=== PATIENT | male | born 1965 | race African-American/Black ===

== ENCOUNTER 2020-02-06 10:30 | Emergency (ER) | payer OTHER ==
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
--- NOTE | 2020-02-06 11:37 | RAD REPORT ---
EXAM DESCRIPTION: RAD - Knee Left 2 View - 02/06/2020 11:06 am CLINICAL HISTORY: PAIN COMPARISON: No comparisons FINDINGS: No fracture, dislocation or periosteal reaction.No joint effusion seen. No joint space tomy rowing. No soft tissue abnormality. IMPRESSION: Negative left knee. Clinical concerns for internal derangement or occult bony injury could be further assessed with MR im aging.
--- NOTE | 2020-02-06 11:37 | RAD REPORT ---
EXAM DESCRIPTION: RAD - Knee Right 2 View - 02/06/2020 11:06 am CLINICAL HISTORY: PAIN COMPARISON: No comparisons FINDINGS: No fracture, dislocation or periosteal reaction.No joint effusion seen. No joint space tomy rowing. No foreign body in the soft tissues. There is mild contusion suspected in the fatty tissues s uperior to the joint. IMPRESSION: No acute bone or joint finding. Clinical concerns for internal derangement or occult bony injury could be further assessed with MR imaging.
--- NOTE | 2020-02-06 11:39 | RAD REPORT ---
EXAM DESCRIPTION: Shoulder Right 2 View - 02/06/2020 11:06 am CLINICAL HISTORY: PAIN COMPARISON: No comparisons TECHNIQUE: Internal and external rotation views of the right shoulder were obtained. FINDINGS: There is no fracture or dislocation. Mild AC joint degenerative changes are present. No i nferiorly directed spur. There degenerative changes mild in degree along the undersurface of the acro mion. Patient has soft tissue calcifications in the acromial humeral joint space. This is likely from a chronic tendon or capsule injury. No acute bone avulsive process seen. No upper rib abnormality. IMPRESSION: No fracture or acute right shoulder finding identified. AC joint degenerative changes ar e present. Calcifications in the acromial humeral joint space have the appearance of old traumatic tendon or kiersten nt capsule injury.
[2020-02-06] MEDS ORDERED: IBUPROFEN 400 MG TAB ONE (11:47)
[2020-02-06] MEDS ORDERED: IBUPROFEN 200 MG TAB PO ONE (11:47)
[2020-02-06 11:53] LABS: Urine Blood TRACE (NEG); Urine Glucose NEGATIVE (NEG); Urine Protein NEGATIVE (NEG)
[2020-02-06] MEDS ORDERED: LIDOCAINE 1% MPF 5 ML VIAL ONE (13:25)
[2020-02-06] MEDS ORDERED: CEFAZOLIN SODIUM 1 GM/VIAL ONE (13:25)
[2020-02-06] MEDS ORDERED: WATER FOR INJ,STERILE 10 ML ONE (13:30)
[2020-02-06 14:45] VITALS: TEMP 99
[2020-02-06 14:47] VITALS: BP 125/57; O2SAT 100
--- NOTE | 2020-02-06 20:05 | ER ---
Nurse's Notes [facility] Name: Nicola Tompkins Age: 55 yrs Sex: Male : 1965 Arrival Date: 02/06/2020 Time: 10:34 Bed 18 Private MD: Diagnosis: Fall due to bumping against object;Contusion of other part of head-chin, hematoma;Pain in left knee;Pain in right knee Presentation: 02/05 10:47 Chief complaint: Patient states: Fell off of ladder yesterday, approximately 15-20 ss feet. Pt c/o pain to bilateral knees, R shoulder and chin. Denies LOC. Respirations even and unlabored. Care prior to arrival: None. Mechanism of Injury: Fall from ladder approximately 15 feet. Trauma event details: Injury occurred in the [facility], Injury occurred: February 05, 2020. 10:47 Acuity: NATHALIA 2 ss 10:47 Method Of Arrival: Ambulatory ss 10:55 Coronavirus screen: Proceed with normal triage. Patient denies a cough. Patient denies ss shortness of breath or difficulty breathing. Patient denies measured and/or subjective temperature greater than 100.4F prior to today's visit. Patient denies travel on a cruise ship or to a country the [facility] currently lists as an affected area. Patient denies contact with known and/or suspected case of COVID-19. Ebola Screen: Patient denies exposure to infectious person. Patient denies travel to an Ebola-affected area in the 21 days before illness onset. Initial Sepsis Screen: Does the patient meet any 2 criteria? No. Patient's initial sepsis screen is negative. Does the patient have a suspected source of infection? No. Patient's initial sepsis screen is negative. Risk Assessment: Do you want to hurt yourself or someone else? Patient reports no desire to harm self or others. Onset of symptoms was February 05, 2020. Trauma Activation: Alert Physician: ED Physician; Name: ; Notified At: ; Arrived At: Physician: General Surgeon; Name: ; Notified At: ; Arrived At: Physician: Radiology; Name: ; Notified At: ; Arrived At: Physician: Respiratory; Name: ; Notified At: ; Arrived At: Physician: Lab; Name: ; Notified At: ; Arrived At: Historical: - Allergies: 10:56 No Known Allergies; ss - Immunization history:: Adult Immunizations up to date. - Social history:: Smoking status: Patient reports the use of cigarette tobacco products, smokes one-half pack cigarettes per day. - Family history:: not pertinent. Screenin:43 Abuse screen: Denies threats or abuse. Denies injuries from another. Tuberculosis ss screening: Never had TB. 13:45 Nutritional screening: No deficits noted. Fall Risk None identified. Primary Survey: 10:43 NO uncontrolled hemorrhage observed. Breathing/Chest: Respiratory pattern: regular, ss Respiratory effort: spontaneous, unlabored, Breath sounds: clear, bilaterally. Chest inspection: symmetrical rise and fall of the chest. Circulation: Pulses: palpable right radial artery, right posterior tibial artery, left radial artery and left posterior tibial artery. Skin color: pink. Disability Alert. Exposure/Environment: All clothing and personal items were removed. Clothing may be used as evidence. Items were removed and preserved. There is no evidence of uncontrolled external bleeding. Obvious injury(ies) are noted at this time: swelling observed to chin. Assessment: 10:43 General: Appears in no apparent distress. comfortable, Behavior is calm, cooperative, ss Denies fever, feeling ill, fatigue, chills. Pain: Complains of pain in bilateral knees, R shoulder and chin Pain currently is 4 out of 10 on a pain scale. Quality of pain is described as aching, tender, Pain began this morning Is continuous. Neuro: Level of Consciousness is awake, alert, obeys commands, Oriented to person, place, time, situation, Oil Expeller are equal bilaterally swelling noted to L chin. Pupils are PERRLA. EENT: Ear canal clear on right ear and left ear Nares are clear Oral mucosa is moist. Throat is clear. Cardiovascular: Capillary refill < 3 seconds is brisk in bilateral fingers Patient's skin is warm and dry. Pulses are palpable in right radial artery, right posterior tibial artery, left radial artery and left posterior tibial artery. Respiratory: Airway is patent Respiratory effort is even, unlabored, Respiratory pattern is regular, symmetrical, Breath sounds are clear bilaterally. GI: Abdomen is non-distended, Bowel sounds present X 4 quads. Patient currently denies diarrhea, nausea, vomiting. : No signs and/or symptoms were reported regarding the genitourinary system. Denies inability to void. Derm: Skin is intact, is healthy with good turgor, Skin is dry, Skin is pink, warm \T\ dry. normal. Musculoskeletal: Circulation, motion, and sensation intact. Range of motion: intact in all extremities, Swelling absent. Vital Signs: 10:43 BP 172 / 72; Pulse 75; Resp 16; Temp 99.0(TE); Pulse Ox 97% on R/A; Weight 81.65 kg; Height 5 ft. 8 in. (172.72 cm); Pain 4/10; 12:00 BP 125 / 57; Pulse 73; Resp 18; Pulse Ox 100% ; ah 10:43 Body Mass Index 27.37 (81.65 kg, 172.72 cm) [place] Coma Score: 10:43 Eye Response: spontaneous(4). Verbal Response: oriented(5). Motor Response: obeys commands(6). Total: 15. Trauma Score (Adult): 10:43 Eye Response: spontaneous(1); Verbal Response: oriented(1); Motor Response: obeys commands(2); Systolic BP: > 89 mm Hg(4); Respiratory Rate: 10 to 29 per min(4); [place] Score: 15; Trauma Score: 12 ED Course: 10:34 Patient arrived in ED. fj1 10:37 Ruiz Fuchs MD is Attending Physician. levi 10:43 Patient has correct armband on for positive identification. Bed in low position. Call ss light in reach. 10:43 Patient maintains SpO2 saturation greater than 95% on room air. ss 10:49 Triage completed. ss 10:56 Arm band placed on right wrist. 11:03 Wound care: ice pack applied. dh3 11:06 Shoulder Right (2 View) XRAY In Process Unspecified. EDMS 11:06 Knee Right 2 View In Process Unspecified. EDMS 11:06 Knee Left 2 View In Process Unspecified. EDMS 11:16 CT Facial Bones W/O Con In Process Unspecified. EDMS 13:02 Mic Fonseca DDS is Referral Physician. levi 13:02 Lonnie Levy MD is Referral Physician. [facility] 13:45 No provider procedures requiring assistance completed. Patient did not have IV access ah during this emergency room visit. 14:05 Stephanie Lombardo, RN is Primary Nurse. Administered Medications: 11:35 Drug: Motrin 600 mg Route: PO; 13:21 Follow up: Response: No adverse reaction 13:27 Not Given (order changed to IM): Ancef 1 grams IVPB once 13:28 Drug: Ancef 1 grams Route: IM; Site: left ventrogluteal; Outcome: 13:03 Discharge ordered by . levi 13:45 Discharged to home ambulatory. 13:45 Condition: good 13:45 Discharge instructions given to patient, Instructed on discharge instructions, follow up and referral plans. medication usage, Demonstrated understanding of instructions, follow-up care, medications, Prescriptions given X 2. 13:45 Patient's length of stay was not longer than 2 hours. 14:39 Patient left the ED. Signatures: Dispatcher [employer] EDMS Ruiz Fuchs MD MD cha Smirch, Shelby, RN RN Dominique Han [facility] Stephanie Lombardo, RN RN
--- NOTE | 2020-02-06 20:05 | EDPHYS ---
Physician Documentation [facility] Name: Nicola Tompkins Age: 55 yrs Sex: Male : 1965 Arrival Date: 02/06/2020 Time: 10:34 Bed 18 Private MD: ED Physician Ruiz Fuchs HPI: 02/05 10:54 This 55 yrs old Black Male presents to ER via Ambulatory with complaints of Fall Injury.levi 10:54 Details of fall: The patient fell from a height, from a ladder, approximately 15 feet. levi Onset: The symptoms/episode began/occurred yesterday. Associated injuries: The patient sustained injury to the head, swelling, tenderness, right arm, right leg and left leg, decreased range of motion. Severity of symptoms: At their worst the symptoms were mild, moderate, in the emergency department the symptoms are unchanged. The patient has not experienced similar symptoms in the past. Historical: - Allergies: 10:56 No Known Allergies; ss - Immunization history:: Adult Immunizations up to date. - Social history:: Smoking status: Patient reports the use of cigarette tobacco products, smokes one-half pack cigarettes per day. - Family history:: not pertinent. ROS: 10:55 Constitutional: Negative for fever, chills, and weight loss, Eyes: Negative for injury, levi pain, redness, and discharge, ENT: Negative for injury, pain, and discharge, Neck: Negative for injury, pain, and swelling, Cardiovascular: Negative for chest pain, palpitations, and edema, Respiratory: Negative for shortness of breath, cough, wheezing, and pleuritic chest pain, Abdomen/GI: Negative for abdominal pain, nausea, vomiting, diarrhea, and constipation, Back: Negative for injury and pain, : Negative for injury, bleeding, discharge, and swelling, Skin: Negative for injury, rash, and discoloration, Neuro: Negative for headache, weakness, numbness, tingling, and seizure, Psych: Negative for depression, anxiety, suicide ideation, homicidal ideation, and hallucinations, Allergy/Immunology: Negative for hives, rash, and allergies, Endocrine: Negative for neck swelling, polydipsia, polyuria, polyphagia, and marked weight changes, Hematologic/Lymphatic: Negative for swollen nodes, abnormal bleeding, and unusual bruising. 10:55 MS/extremity: Positive for injury or acute deformity, decreased range of motion, pain, of the right arm, right leg and left leg. Exam: 10:55 Constitutional: This is a well developed, well nourished patient who is awake, alert, levi and in no acute distress. Eyes: Pupils equal round and reactive to light, extra-ocular motions intact. Lids and lashes normal. Conjunctiva and sclera are non-icteric and not injected. Cornea within normal limits. Periorbital areas with no swelling, redness, or edema. ENT: Nares patent. No nasal discharge, no septal abnormalities noted. Tympanic membranes are normal and external auditory canals are clear. Oropharynx with no redness, swelling, or masses, exudates, or evidence of obstruction, uvula midline. Mucous membranes moist. Neck: Trachea midline, no thyromegaly or masses palpated, and no cervical lymphadenopathy. Supple, full range of motion without nuchal rigidity, or vertebral point tenderness. No Meningismus. Chest/axilla: Normal chest wall appearance and motion. Nontender with no deformity. No lesions are appreciated. Cardiovascular: Regular rate and rhythm with a normal S1 and S2. No gallops, murmurs, or rubs. Normal PMI, no JVD. No pulse deficits. Respiratory: Lungs have equal breath sounds bilaterally, clear to auscultation and percussion. No rales, rhonchi or wheezes noted. No increased work of breathing, no retractions or nasal flaring. Abdomen/GI: Soft, non-tender, with normal bowel sounds. No distension or tympany. No guarding or rebound. No evidence of tenderness throughout. Back: No spinal tenderness. No costovertebral tenderness. Full range of motion. Male : Normal genitalia with no discharge or lesions. Skin: Warm, dry with normal turgor. Normal color with no rashes, no lesions, and no evidence of cellulitis. Neuro: Awake and alert, GCS 15, oriented to person, place, time, and situation. Cranial nerves II-XII grossly intact. Motor strength 5/5 in all extremities. Sensory grossly intact. Cerebellar exam normal. Normal gait. Psych: Awake, alert, with orientation to person, place and time. Behavior, mood, and affect are within normal limits. 10:55 Head/face: Noted is contusion, swelling, tenderness, that is moderate, of the chin. 10:55 Musculoskeletal/extremity: ROM: limited active range of motion due to pain, limited passive range of motion due to pain, Circulation is intact in all extremities. Pulses: are normal with no appreciated deficits, Sensation intact. Compartment Syndrome exam of affected extremity: is normal. DVT Exam: negative Homans' sign noted on exam, no appreciated bluish discoloration, no erythema, no increased warmth, pain, swelling, tenderness. Vital Signs: 10:43 BP 172 / 72; Pulse 75; Resp 16; Temp 99.0(TE); Pulse Ox 97% on R/A; Weight 81.65 kg; ss Height 5 ft. 8 in. (172.72 cm); Pain 4/10; 12:00 BP 125 / 57; Pulse 73; Resp 18; Pulse Ox 100% ; ah 10:43 Body Mass Index 27.37 (81.65 kg, 172.72 cm) ss [place] Coma Score: 10:43 Eye Response: spontaneous(4). Verbal Response: oriented(5). Motor Response: obeys ss commands(6). Total: 15. Trauma Score (Adult): 10:43 Eye Response: spontaneous(1); Verbal Response: oriented(1); Motor Response: obeys ss commands(2); Systolic BP: > 89 mm Hg(4); Respiratory Rate: 10 to 29 per min(4); [place] Score: 15; Trauma Score: 12 MDM: 10:37 Patient medically screened. [facility] 10:57 Data reviewed: vital signs, nurses notes, lab test result(s), radiologic studies, CT levi scan, plain films. 10:57 Differential diagnosis: humeral head fracture, glenoid fracture, DJD, tendonitis, levi closed fracture. Differential diagnosis: abrasion, contusion, fracture, multiple trauma, sprain, strain. Data interpreted: security monitor: rate is 75 beats/min, Pulse oximetry: on room air is 97 %. Test interpretation: by ED physician or midlevel provider: plain radiologic studies. Counseling: I had a detailed discussion with the patient and/or guardian regarding: the historical points, exam findings, and any diagnostic results supporting the discharge/admit diagnosis, lab results, radiology results, the need for outpatient follow up. Medication response: ibuprofen administration has improved the patient's pain. 13:01 ED course: all xrays reviewed, ct reviewed and shared with patient. romina marks, with [facility] follow up. 02/05 11:49 Order name: Urine Dipstick--Ancillary (enter results); Complete Time: 13:00 02/05 10:54 Order name: CT Facial Bones W/O Con; Complete Time: 13:00 [facility] 02/05 10:54 Order name: Shoulder Right (2 View) XRAY; Complete Time: 13:00 [facility] 02/05 11:05 Order name: Knee Right 2 View; Complete Time: 13:00 EDND 02/05 10:54 Order name: Urine Dipstick-Ancillary (obtain specimen); Complete Time: 13:29 [facility] 02/05 10:59 Order name: Ice pack; Complete Time: 11:06 [facility] 02/05 11:05 Order name: Knee Left 2 View; Complete Time: 13:00 EDND 02/05 13:01 Order name: Sling; Complete Time: 14:05 [facility] Administered Medications: 11:35 Drug: Motrin 600 mg Route: PO; 13:21 Follow up: Response: No adverse reaction 13:27 Not Given (order changed to IM): Ancef 1 grams IVPB once 13:28 Drug: Ancef 1 grams Route: IM; Site: left ventrogluteal; Disposition: 02/06/20 13:03 Discharged to Home. Impression: Fall due to bumping against object, Contusion of other part of head - chin, hematoma, Pain in left knee, Pain in right knee. - Condition is Stable. - Discharge Instructions: Joint Pain, Arthritis, Musculoskeletal Pain, Knee Pain, Cryotherapy, [id number], Cryotherapy. - Prescriptions for Keflex 500 mg Oral Capsule - take 1 capsule by ORAL route every 6 hours for 7 days; 28 capsule. Tylenol- Codeine #3 300-30 mg Oral Tablet - take 2 tablet by ORAL route every 6 hours As needed; 30 tablet. - Medication Reconciliation Form, Thank You Letter, Antibiotic Education, Prescription Opioid Use form. - Work release form (02/07/20 13:57). bd - Follow up: Private Physician; When: 2 - 3 days; Reason: Recheck today's complaints, Continuance of care, Re-evaluation by your physician. Follow up: Mic Fonseca DDS; When: 2 - 3 days; Reason: Recheck today's complaints, Re-evaluation by your physician. Follow up: Lonnie Levy MD; When: 2 - 3 days; Reason: Recheck today's complaints, Re-evaluation by your physician. - Problem is new. - Symptoms have improved. Signatures: Dispatcher [employer] EDND Ruiz Fuchs MD MD cha Smirch, Shelby, RN RN Stephanie Veloz RN RN Acacia Nuno Corrections: (The following items were deleted from the chart) 11:05 10:55 Knee Right 3 View+RAD.RAD.BRZ ordered. EDND EDMS 11:05 10:55 Knee Left 3 View+RAD.RAD.BRZ ordered. [facility] EDND 14:39 13:03 02/06/2020 13:03 Discharged to Home. Impression: Fall due to bumping against ss object; Contusion of other part of head - chin, hematoma; Pain in left knee; Pain in right knee. Condition is Stable. Forms are Medication Reconciliation Form, Thank You Letter, Antibiotic Education, Prescription Opioid Use. Follow up: Private Physician; When: 2 - 3 days; Reason: Recheck today's complaints, Continuance of care, Re-evaluation by your physician. Follow up: Mic Fonseca; When: 2 - 3 days; Reason: Recheck today's complaints, Re-evaluation by your physician. Follow up: Dr. Lonnie Levy; When: 2 - 3 days; Reason: Recheck today's complaints, Re-evaluation by your physician. Problem is new. Symptoms have improved. levi
== END 2020-02-06 14:39 | disposition home or self-care (01) ==
LOC: ER 10:30
DX: S00.83XA Contusion of other part of head, initial encounter (principal); M25.562 Pain in left knee; M25.561 Pain in right knee; W11.XXXA Fall on and from ladder, initial encounter; Y93.9 Activity, unspecified; Y92.9 Unspecified place or not applicable; F17.210 Nicotine dependence, cigarettes, uncomplicated
CPT/HCPCS: 81003; 70486; 76377; 73030; 73560 ×2; 96372; 99284; J0690